=== PATIENT | female | born 1935 | race Two or more races ===

== ENCOUNTER 2017-12-22 12:01 | Outpatient (CLI) | payer OTHER ==
[~2017-12-22 12:01] MED LIST: ATORVASTATIN CA10 MG PO; DIOVAN HCT 80-11 TAB PO; PROTONIX40 MG PO; RAPAFLO8 MG PO; TOPROL XL25 M1 PO; VITAMIN D250000 UNIT PO
== END 2017-12-22 12:06 | disposition home or self-care (01) ==
LOC: SONOGRAMA 12:01
DX: R31.21 Asymptomatic microscopic hematuria (principal); F52.22 Female sexual arousal disorder

== ENCOUNTER 2018-07-27 10:31 | Outpatient (CLI) | payer OTHER | END 2018-07-27 15:44 | disposition home or self-care (01) | LOC: SONOGRAMA 10:31 | DX: R31.21 Asymptomatic microscopic hematuria (principal); N40.1 Benign prostatic hyperplasia with lower urinary tract symptoms; F52.21 Male erectile disorder ==

== ENCOUNTER 2019-08-08 13:55 | Outpatient (CLI) | payer OTHER | END 2019-08-08 14:00 | disposition home or self-care (01) | LOC: SONOGRAMA 13:55 → MAMO-SONO 14:15 | DX: N40.1 Benign prostatic hyperplasia with lower urinary tract symptoms (principal); R31.21 Asymptomatic microscopic hematuria; F52.21 Male erectile disorder; N28.1 Cyst of kidney, acquired ==